=== PATIENT | female | born 1985 | race Caucasian/White ===

== ENCOUNTER 2017-09-20 23:34 | Emergency (ER) | payer MEDICAID ==
[~2017-09-20] VITALS: Ht 157.5 cm; Wt 62.1 kg
[2017-09-20 23:40] VITALS: BP 143/108
== END 2017-09-20 23:59 | disposition home or self-care (01) ==
LOC: ER 23:36
DX: F41.9 Anxiety disorder, unspecified (principal); R10.9 Unspecified abdominal pain
CPT/HCPCS: 99284

== ENCOUNTER 2019-01-02 00:40 | Emergency (ER) | payer MEDICAID ==
[~2019-01-02] VITALS: Ht 157.5 cm; Wt 61.4 kg
[2019-01-02 00:47] VITALS: BP 138/93
--- NOTE | 2019-01-02 01:30 | NUR ---
CALL PLACED TO NUMBER ON FILE. SPOKE WITH "[email or web address]". SHE REPORTS THAT SHE IS FEELING BETTER AND WILL EITHER RETURN IN THE AM OR SEE HER PRIMARY MD.
== END 2019-01-02 01:11 | disposition left against medical advice (07) ==
LOC: ER 00:41
DX: F41.9 Anxiety disorder, unspecified (principal); Z53.21 Procedure and treatment not carried out due to patient leaving prior to being seen by health care provider

== ENCOUNTER 2023-08-30 15:22 | Emergency (ER) | payer MEDICAID ==
[~2023-08-30] VITALS: Ht 157.5 cm; Wt 70.8 kg
[2023-08-30 15:40] VITALS: BP 154/92; PULSE 112; RESP 16; TEMP 98.5; O2SAT 99
[2023-08-30] MEDS ORDERED: GUAI120015 PO (16:25)
[2023-08-30] MEDS ORDERED: SODI30SP3 BOTHNARES (16:25)
== END 2023-08-30 16:31 | disposition home or self-care (01) ==
LOC: ER 15:23
DX: H65.01 Acute serous otitis media, right ear (principal); Z79.899 Other long term (current) drug therapy; Z98.890 Other specified postprocedural states
CPT/HCPCS: 99282

== ENCOUNTER 2023-09-01 00:41 | Emergency (ER) | payer MEDICAID ==
[~2023-09-01] VITALS: Ht 157.5 cm; Wt 70.9 kg
[~2023-09-01 00:41] MED LIST: GUAI120015 PO; SODI30SP3 BOTHNARES
[2023-09-01 00:44] VITALS: BP 147/98; PULSE 107; RESP 16; TEMP 98.5; O2SAT 96
== END 2023-09-01 02:23 | disposition left against medical advice (07) ==
LOC: ER 00:42
DX: H92.09 Otalgia, unspecified ear (principal); R53.83 Other fatigue; Z53.21 Procedure and treatment not carried out due to patient leaving prior to being seen by health care provider
CPT/HCPCS: 99281